=== PATIENT | female | born 1980 | race Two or more races ===

== ENCOUNTER 2016-11-12 17:25 | Emergency (ER) | payer SELFPAY ==
[~2016-11-12] VITALS: Ht 167.6 cm; Wt 74.0 kg
[2016-11-12] MEDS ORDERED: SODIUM CHLORIDE 0.9% 1,000 ML IV ONE (18:43)
[2016-11-12 19:08] LABS: BASOPHILS % 0.4 % (0.0-2.0); HEMATOCRIT. 42.6 % (36.0-48.0); HEMOGLOBIN. 14.3 g/dL (12.0-16.0); LYMPHOCYTES % 17.6 % (20.0-50.0); MEAN CORPUSCULAR HEMOGLOBIN 28.7 pg (28.0-32.0); MEAN CORPUSCULAR VOLUME 85.6 fL (81.0-99.0); MEAN PLATELET VOLUME 9.2 fl (7.4-10.4); MONOCYTES % 7.3 % (2.0-8.0); NEUTROPHILS % 74.7 % (40.0-76.0); PLATELET 230 x1000/uL (130-400); RED BLOOD CELL COUNT 4.98 mill/uL (4.2-5.4); RED CELL DISTRIBUTION WIDTH 12.6 % (11.6-14.6)
[2016-11-12 19:13] LABS: CHLORIDE 106 mEq/L (98-107)
[2016-11-12 19:16] LABS: HCG SCREEN NEGATIVE
[2016-11-12 19:18] LABS: CARBON DIOXIDE 25 mEq/L (21-32); ETHANOL BLOOD < 10 mg/dL
[2016-11-12 19:49] LABS: CLARITY URINE TURBID (CLEAR); COLOR URINE YELLOW (YELLOW); GLUCOSE URINE NEGATIVE (NEGATIVE); KETONES URINE 3+ (NEGATIVE); LEUKOCYTE ESTERASE URINE NEGATIVE (NEGATIVE); NITRITE URINE NEGATIVE (NEGATIVE); OCCULT BLOOD URINE TRACE (NEGATIVE); PH URINE 7.5 (4.5-8.0); PROTEIN URINE NEGATIVE (NEGATIVE); SPECIFIC GRAVITY URINE 1.023 (1.005-1.030)
[2016-11-12 20:02] LABS: *AMPHETAMINES SCREEN URINE NEGATIVE (NEGATIVE); *BARBITURATES SCREEN URINE NEGATIVE (NEGATIVE); *BENZODIAZEPINES SCREEN URINE NEGATIVE (NEGATIVE); *COCAINE SCREEN URINE NEGATIVE (NEGATIVE); CANNABINOID URINE SCREEN NEGATIVE (NEGATIVE); METHADONE URINE SCREEN NEGATIVE (NEGATIVE); OPIATES URINE SCREEN NEGATIVE (NEGATIVE); PHENCYCLIDINE URINE SCREEN NEGATIVE (NEGATIVE)
[2016-11-12] MEDS ORDERED: DIPHENHYDRAMINE 50MG/ML VIAL IV ONE (21:00)
[2016-11-12 21:50] VITALS: BP 128/78
== END 2016-11-12 21:50 | disposition home or self-care (01) ==
LOC: ER 17:45
DX: G47.00 Insomnia, unspecified (principal); F41.0 Panic disorder [episodic paroxysmal anxiety]; N39.0 Urinary tract infection, site not specified
CPT/HCPCS: 36415; 80048; 80305; 80307; 80329; 81001; 84703; 85025; 96361; 96374; 99285; G0482; J1200; J7030

== ENCOUNTER 2016-11-13 14:29 | Emergency (ER) | payer SELFPAY ==
[~2016-11-13] VITALS: Ht 160 cm; Wt 70.0 kg
[2016-11-13] MEDS ORDERED: LORAZEPAM 1MG TABLET PO ONE (19:00)
[2016-11-13 20:26] VITALS: BP 116/72
== END 2016-11-13 21:30 | disposition home or self-care (01) ==
LOC: ER 14:32
DX: G47.00 Insomnia, unspecified (principal); F41.9 Anxiety disorder, unspecified
CPT/HCPCS: 99284

== ENCOUNTER 2018-09-14 16:33 | Emergency (ER) | payer SELFPAY ==
[~2018-09-14] VITALS: Ht 165.1 cm; Wt 86.0 kg
[2018-09-14] MEDS ORDERED: KETOROLAC 60MG/2ML VIAL IM ONE (17:30)
[2018-09-15 12:30] VITALS: BP 118/68
== END 2018-09-15 12:34 | disposition home or self-care (01) ==
LOC: ER 16:33
DX: M25.562 Pain in left knee (principal); M25.561 Pain in right knee; Z59.0 Homelessness
CPT/HCPCS: 73562; 81025; 96372; 99283; J1885

== ENCOUNTER 2021-09-18 09:19 | Emergency (ER) | payer OTHER ==
[~2021-09-18] VITALS: Ht 165.1 cm; Wt 98.0 kg
[2021-09-18] MEDS ORDERED: IBUPROFEN 600MG TABLET PO ONE (10:45)
[2021-09-18] MEDS ORDERED: LIDOCAINE HCL/PF 1% 10 MG/ML 5ML VIAL INFIL ONE (11:00)
[2021-09-18] MEDS ORDERED: OFLO5DRO4 LEFT EAR (11:14)
[2021-09-18 11:29] VITALS: BP 145/91
== END 2021-09-18 11:31 | disposition home or self-care (01) ==
LOC: ER 09:19
DX: T16.2XXA Foreign body in left ear, initial encounter (principal); X58.XXXA Exposure to other specified factors, initial encounter
CPT/HCPCS: 69200; 99284; J3490